=== PATIENT | female | born 1935 | race Caucasian/White ===

== ENCOUNTER → 2018-03-17 | Outpatient (CLI) | payer OTHER ==
[~2018-03-17] MED LIST: ATOR10TA82 PO; CRDCD180 PO; FRRG PO; FSMD/70 PO; LEVO75TA PO; METO100T14 PO; WARF5TAB7 PO
--- NOTE | 2018-03-17 11:43 | DIAGNOSTIC IMAGING REPORT ---
(BARIUM SWALLOW) ESOPHAGUS CLINICAL HISTORY: Dysphagia. COMPARISON STUDY: None. FLUOROSCOPY TIME: 1.5 minutes.. FINDINGS: 24 fluoroscopic spot images. The contours of the hypopharynx are within normal limits. The proximal to mid esophagus is normal in caliber. The patient swallowed barium without difficulty. There appears to be focal narrowing at the distal esophagus with irregularity at the gastroesophageal junction. This is best in image 21. The barium tablet remained lodged at this area of narrowing. There is a moderate to large hiatus hernia. Mild esophagitis dysmotility. IMPRESSION: 1. Focal narrowing at the distal esophagus with irregularity of the gastroesophageal junction. This area of stricture raises the possibility of an underlying mass. Endoscopy is recommended for further evaluation. 2. Moderate to large hiatus hernia. Electronically signed by: Dereje Morales M.D. 03/17/2018 11:41 AM Dictated Date/Time: 03/17/2018 11:39 AM
== END | disposition home or self-care (01) ==
LOC: C.RAD 10:46
PROVIDERS: ATTEND Family Medicine
DX: K22.2 Esophageal obstruction (principal); K44.9 Diaphragmatic hernia without obstruction or gangrene